=== PATIENT | female | born 1975 | race African-American/Black ===

== ENCOUNTER 2016-12-08 17:40 | Emergency (ER) | payer OTHER ==
[~2016-12-08] VITALS: Ht 160 cm; Wt 54.0 kg
[~2016-12-08 17:40] MED LIST: IBUPROFEN 600600 M1 PO; IBUPROFEN 800800 M1; NORCO 5-325 TA1 EACH PO; ONDANSETRON HCL4 M2 PO; PEPCID40 MG PO; PHENERGAN 25 MG25 M1 PO; PROTONIX40 MG PO; SKELAXIN 800 M800 M1 PO; UNICOMPLEX M TA1 TA1 PO; VISTARIL 25 MG25 M1 PO; VITAMIN D 5050000 I1 PO; ZANTAC 150MG T150 MG PO; ZOFRAN ODT4 MG PO; ZPAK PO
[2016-12-08] MEDS ORDERED: UNICOMPLEX M TA1 TA1 PO (19:39)
[2016-12-08] MEDS ORDERED: VITAMIN D2000 UNIT PO (19:39)
[2016-12-08] MEDS ORDERED: PROTONIX40 M1 PO (19:39)
[2016-12-08 20:23] LABS: ABSOLUTE NEUTROPHILS 5.4 thou/uL (1.4-8.2); BASOPHILS 1.4 % (0.0-2.0); EOSINOPHILS 0.6 % (0.0-3.0); HEMATOCRIT 40.3 % (37.0-47.0); HEMOGLOBIN 13.7 gm/dL (12.0-15.0); LYMPHOCYTES 28.9 % (24.0-44.0); MANUAL DIFF NO; MCV 91.2 fL (80.0-100.0); MONOCYTES 7.1 % (1.0-8.0); PLATELET COUNT 488 thou/uL (150-400); RBC 4.42 mil/uL (4.20-5.00); RDW 13.7 % (10.5-14.5); WBC 8.8 thou/uL (4.0-11.0)
[2016-12-08 20:26] LABS: CALCIUM 8.5 mg/dL (8.5-10.1); CREATININE 0.6 mg/dL (0.6-1.0); POTASSIUM 3.4 mmol/L (3.5-5.1)
[2016-12-08 20:31] LABS: ALBUMIN 3.9 g/dL (3.4-5.0); TOTAL BILIRUBIN 0.6 mg/dL (<0.1-1.0)
[2016-12-08 20:37] LABS: APTT 26.2 Seconds (24.5-32.8); INR 1.1; PROTIME 11.4 Seconds (9.3-11.4)
[2016-12-08] MEDS ORDERED: NAPROSYN500 MG PO (22:28)
[2016-12-08 23:00] VITALS: BP 130/75
== END 2016-12-08 23:00 | disposition home or self-care (01) ==
LOC: ER 17:40
PROVIDERS: Emergency Medicine
DX: G97.1 Other reaction to spinal and lumbar puncture (principal); G43.909 Migraine, unspecified, not intractable, without status migrainosus; Z90.89 Acquired absence of other organs; Z87.891 Personal history of nicotine dependence
CPT/HCPCS: 62110; 62900